=== PATIENT | female | born 1945 | race Caucasian/White ===

== ENCOUNTER 2017-01-13 17:14 | Emergency (ER) | payer MEDICARE ==
[2017-01-13 17:22] VITALS: BP 112/64
--- NOTE | 2017-01-13 18:57 | ED Physician Documentation ---
PD HPI LOWER EXT INJURY - Stated complaint Stated Complaint: NUMBNESS IN LEFT LEG - Chief complaint Chief Complaint: Ext Problem - History obtained from History obtained from: Patient - History of Present Illness PD HPI LOW EXT INJURY LOCATION: Left, Upper leg Type of injury: No: Fall, Twist Timing - onset: How many days ago (4-5) Timing - duration: Days (has had several days of pain to left thigh with feeling of numbness along anterolateral aspect. Not having pain in back per se. No swelling of leg. No recent travel. Talked with PMD office about it and was referred to ED for concern of DVT to get U/S.) Timing - details: Gradual onset, Still present, Waxing and waning Worsened by: No: Moving, Palpating (does not hurt to touch on the thigh) Associated symptoms: Numbness. No: Weakness, Swelling Similar symptoms before: Has not had sx before Recently seen: Not recently seen Review of Systems Constitutional: denies: Fever, Chills Nose: denies: Rhinorrhea / runny nose, Congestion Throat: denies: Sore throat Respiratory: denies: Cough GI: denies: Abdominal Pain, Nausea, Vomiting, Diarrhea : denies: Dysuria, Frequency Musculoskeletal: denies: Neck pain, Back pain Neurologic: reports: Numbness (just the left thigh laterally). denies: Focal weakness PD PAST MEDICAL HISTORY - Past Medical History Cardiovascular: None Respiratory: None Neuro: None Musculoskeletal: None - Present Medications Home Medications: Ambulatory Orders Medication Instructions Recorded Confirmed Methocarbamol [Robaxin] 500 mg PO TID #25 tablet 01/13/17 Naproxen 375 mg PO BID #20 tablet 01/13/17 - Allergies Allergies/Adverse Reactions: Allergies Allergy/AdvReac Type Severity Reaction Status Date / Time No Known Drug Allergies Allergy Verified 01/13/17 17:22 PD ED PE NORMAL - Vitals Vital signs reviewed: Yes - General General: Alert and oriented X 3, No acute distress, Well developed/nourished - Abdomen Abdomen: Soft, Non tender - Back Back: No CVA TTP, No spinal TTP, Other (some tenderness left SI area) - Derm Derm: Normal color, Warm and dry, No rash - Extremities Extremities: No tenderness to palpate, Normal ROM s pain, No edema, No calf tenderness / cord, Other (no tenderness of left thigh. Has normal knee reflexes. ) - Neuro Neuro: Alert and oriented X 3, No motor deficit, Normal speech Results - Vitals Vitals: Oxygen O2 Source Room air PD MEDICAL DECISION MAKING - ED course Complexity details: considered differential (numbness sounds limited to left leg in small swatch, so sounds like lower back nerve impingement. She is tender more near SI joint. Her provider sent her in concerned about DVT so U/S done and was normal. She is not on statins per se (red rice yeast extract) ), d/w patient Departure - Departure Disposition: 01 Home, Self Care Clinical Impression: Pain in left thigh, Sciatic leg pain Clinical Impression: (Ruled Out): Deep vein thrombosis Condition: Stable Record reviewed to determine appropriate education?: Yes Instructions: ED Sciatica Follow-Up: Sin Delvalle MD [Primary Care Provider] - Prescriptions: Naproxen 375 mg PO BID #20 tablet Methocarbamol [Robaxin] 500 mg PO TID #25 tablet Comments: There is no sign of DVT on the ultrasound. Presume the pain in the left thigh and numbness in the leg is related to her nerve irritation from the back. Tried naproxen twice daily for 7-10 days as directed. Add methocarbamol 3 times a day if needed for muscle stiffness and spasms. Contact her primary care tomorrow with regard to starting physical therapy. Chiropractic work is also okay for this. Discharge Date/Time: 01/13/17 19:48
--- NOTE | 2017-01-13 19:08 | Ultrasound Preliminary Report ---
Exam: US Duplex Ext Veins Left IMPRESSION: No evidence for deep venous thrombosis. [facility] SITE ID: [id number]
--- NOTE | 2017-01-13 19:11 | Ultrasound Report ---
EXAM: LEFT LOWER EXTREMITY VENOUS ULTRASOUND EXAM DATE: 01/13/2017 06:34 PM. CLINICAL HISTORY: Leg numbness and aching. COMPARISON: None. TECHNIQUE: Real-time sonographic vascular imaging was performed by the surgical technician through the lower extremity utilizing both color-flow and Doppler spectral analysis. Multiple healthcare representative static srikanth ges were saved for review. FINDINGS: Common Femoral Vein (CFV): Normal. CFV-GSV Junction: Normal. Profunda Femoral Vein (PFV): Normal. Femoral Vein (FV) Prox: Normal. Femoral Vein (FV) Mid: Normal. Femoral Vein (FV) Dist: Normal. Popliteal Vein: Normal. Posterior Tibial Veins: Normal. Peroneal Veins: Normal. IMPRESSION: No evidence for deep venous thrombosis. [facility] Referring Provider Line: [phone] SITE ID: [id number]
[2017-01-13] MEDS ORDERED: NAPROXEN 250 MG TABLET PO STA (19:20)
== END 2017-01-13 19:48 | disposition home or self-care (01) ==
LOC: ED 17:14
DX: M79.652 Pain in left thigh (principal); M54.32 Sciatica, left side
CPT/HCPCS: 99281; 99283

== ENCOUNTER 2017-06-20 09:22 | Outpatient (CLI) | payer MEDICARE | END 2017-06-20 09:23 | disposition home or self-care (01) | LOC: LAB.N 09:22 | PROVIDERS: ATTEND Family Medicine | DX: E03.9 Hypothyroidism, unspecified (principal) | CPT/HCPCS: 36415; 84443 ==

== ENCOUNTER 2018-07-16 09:35 | Outpatient (CLI) | payer MEDICARE ==
[2018-07-16 14:23] LABS: BASOPHILS # (AUTO) 0.1 10^3/uL (0.0-0.1); BASOPHILS % (AUTO) 2.1 %; EOSINOPHILS # (AUTO) 0.2 10^3/uL (0.0-0.7); EOSINOPHILS % (AUTO) 4.3 %; HGB - HEMOGLOBIN 13.7 g/dL (12.0-16.0); LYMPHOCYTES # (AUTO) 1.3 10^3/uL (1.5-3.5); LYMPHOCYTES % (AUTO) 36.5 %; MEAN CORPUSCULAR HEMOGLOBIN 31.7 pg (27.0-31.0); MEAN CORPUSCULAR HGB CONC 33.7 g/dL (32.0-36.0); MEAN CORPUSCULAR VOLUME 94.2 fL (81.0-99.0); MONOCYTES # (AUTO) 0.3 10^3/uL (0.0-1.0); MONOCYTES % (AUTO) 8.6 %; NEUTROPHILS # (AUTO) 1.7 10^3/uL (1.5-6.6); NEUTROPHILS % (AUTO) 48.5 %; PLT - PLATELET COUNT 282 10^3/uL (130-450); RED BLOOD COUNT 4.33 10^6/uL (4.20-5.40); RED CELL DISTRIBUTION WIDTH 12.7 % (12.0-15.0); WHITE BLOOD COUNT 3.5 x10^3/uL (4.8-10.8)
[2018-07-16 15:43] LABS: CREATININE 0.7 mg/dL (0.4-1.0)
== END 2018-07-16 23:59 | disposition home or self-care (01) ==
LOC: LAB.N 09:35
PROVIDERS: ATTEND Family Medicine
DX: E03.9 Hypothyroidism, unspecified (principal); Z13.0 Encounter for screening for diseases of the blood and blood-forming organs and certain disorders involving the immune mechanism
CPT/HCPCS: 36415; 82565; 82947; 84443; 84520; 85025

== ENCOUNTER 2018-09-30 15:51 | Outpatient (CLI) | payer MEDICARE ==
--- NOTE | 2018-10-01 08:39 | Mammography Report ---
Reason: SCREENING MAMMO Procedure Date: 09/30/2018 Accession Number: [id number] / [id number] Procedure: [facility] - Screening Mammo w/Arvind CPT Code: FULL RESULT: EXAM: Screening Mammo w/Arvind DATE: 09/30/2018 4:18 PM CLINICAL HISTORY: Screening encounter. History of early menses. TECHNIQUE: (B) - Bilateral CC and MLO views were obtained. A right laterally exaggerated CC view was obtained. COMPARISON: 06/04/2016 through 12/25/2012. PARENCHYMAL PATTERN: (A) - The breast(s) demonstrate(s) scattered fibroglandular densities. FINDINGS: A biopsy marker is seen in the right breast. There are typically benign vascular calcifications. There are typically benign coarse calcifications. There are no suspicious masses, calcifications, or areas of distortion. IMPRESSION: Benign findings. BI-RADS category 2. RECOMMENDATION: (ANNUAL) - Recommend routine annual screening mammography. BI-RADS CATEGORY: (2) - Benign Findings. STANDARD QUALIFYING STATEMENTS: 1. This examination was not reviewed with the aid of Computer-Aided Detection (CAD). 2. A negative or benign imaging report should not preclude biopsy if clinically suspicious findings are present. 3. Dense breasts may obscure an underlying neoplasm. 4. This examination was reviewed with the aid of 3D breast imaging (tomosynthesis).
== END 2018-09-30 15:52 | disposition home or self-care (01) ==
LOC: DI 15:51
DX: Z12.31 Encounter for screening mammogram for malignant neoplasm of breast (principal)
CPT/HCPCS: 77063; 77067